=== PATIENT | female | born 2000 | race Caucasian/White ===

== ENCOUNTER 2024-02-27 19:50 | Outpatient (REF) | payer BC, SELFPAY ==
--- NOTE | ~2024-02-27 | MR_ITS ---
EXAMINATION: MR KNEE WITHOUT CONTRAST, RIGHT CLINICAL INFORMATION: Instability. COMPARISON: None available. TECHNIQUE: MRI of the knee without contrast was performed using routine sequences on a high-field scanner. FINDINGS: MENISCI: Medial Meniscus: Intact. Lateral Meniscus: Intact. LIGAMENTS: Cruciate: Increased T2 signal within the anterior cruciate ligament which could represent normal variation versus a grade 1 sprain. No measurable tear. Intact posterior cruciate ligament. Collateral: Minimal edema adjacent to the medial collateral ligament which could represent a minimal grade 1 sprain. Intact fibular collateral ligament. EXTENSOR MECHANISM: Intact. ARTICULAR CARTILAGE/BONE: Patellofemoral Compartment: Intact articular cartilage. Medial Compartment: Intact articular cartilage. Lateral Compartment: Intact articular cartilage. JOINT FLUID AND BURSAE: Small joint effusion and trace Marx's cyst. MR/MR knee RT wo con IMPRESSION: 1. Increased T2 signal within the anterior cruciate ligament which could represent normal variation versus a grade 1 sprain. No measurable tear. 2. Possible minimal grade 1 sprain of the medial collateral ligament. 3. No meniscal tear. 4. Small joint effusion and trace Marx's cyst. Electronically signed by: Manolo Thornton MD 03/07/2024 01:22 PM EDT
== END 2024-02-27 19:51 | disposition home or self-care (01) ==
LOC: HO.MRI 19:50
PROVIDERS: Visit Provider Student in an Organized Health Care Education/Training Program
DX: M25.361 Other instability, right knee (principal); M25.461 Effusion, right knee
CPT/HCPCS: 73721